=== PATIENT | male | born 1950 | race Caucasian/White ===

== ENCOUNTER 2023-12-08 08:48 | Outpatient (OUT) | payer MEDICARE, SELFPAY ==
--- NOTE | 2023-12-08 09:01 | CA_ITS ---
Patient Name: BALDO SWENSON MR#: [id number] : 1950 Exam Date: 12/08/2023 Ordering Doctor: MONIQUE CHO M.D. ECHOCARDIOGRAM REPORT PROCEDURE: CA ECHO DOPPLER COMPLETE INDICATIONS: Atrial fibrillation/flutter, hypertension COMPARISON: None. DESCRIPTION: COMPLETE ECHOCARDIOGRAM Real-time transthoracic echocardiography with 2D, M-mode, spectral and color flow Doppler performed. QUALITY: Technical quality was good. LEFT VENTRICLE: Normal chamber size. Moderate concentric left ventricular hypertrophy. LV EF: Normal left ventricular ejection fraction, (55%). DIASTOLIC: Not adequately assessed due to heart rhythm. ATRIAL SEPTUM: Visually appears intact. LEFT ATRIUM: Severe dilatation. RIGHT ATRIUM: Severe dilatation. RIGHT VENTRICLE: Moderate dilatation. Normal right ventricular systolic function. TRICUSPID VALVE: Normal mobility and thickness. No stenosis with trivial regurgitation. No evidence of pulmonary hypertension. RVSP 33 mmHg MITRAL VALVE: Normal mobility and thickness. No evidence of mitral valve stenosis. There is no mitral annular calcification. Trivial mitral regurgitation. AORTIC VALVE: Normal trileaflet appearance. No visible sclerosis. Normal leaflet mobility. No evidence of aortic valve stenosis. No aortic regurgitation. AORTIC ROOT: Normal diameter and appearance. Ascending aorta is normal in size. PULMONIC VALVE: Normal thickness and mobility. No stenosis. No regurgitation. PERICARDIUM: No evidence of pericardial effusion. IVC: Collapses with inspirations. IVC is normal in size. PLEURA: CONCLUSION: 1. Moderate concentric left ventricular hypertrophy with normal systolic function. LVEF is estimated at 55%. 2. Moderately dilated right ventricle with normal systolic function. 3. Severe biatrial dilatation. 4. No significant valvular dysfunction. 5. Normal right-sided pressures. 6. No pericardial effusion. Adult Echocardiography Procedure Report Left Ventricle LVEDD (3.7 - 5.6 cm): 5.22 cm LVESD (2.2 - 4.0 cm): 3.15 cm LVIVS thickness (0.6 - 1.2 cm): 1.48 cm LVPW thickness (0.5 - 1.0 cm): 1.35 cm LVOT Max Gradient: 1.35 mm[Hg] LVOT Area (cm2): 0.58 m/s Peak Velocity (LVOT): 0.58 m/s LVOT Diameter 2.34 cm Left Atrium LA Volume Index (2D A2C): 55.44 ml/m2 Left Atrium Systolic Dimension: 4.15 cm Mitral Valve Mitral Valve E-Wave Peak Velocity: 0.63 m/s Right Ventricle Aorta AO Root Diam: 3.71 cm Ascending Ao Diam: 2.79 cm Aortic Valve AoV Area (Peak Javier): 2.88 cm2, 2.88 cm2 Peak Velocity(Antegrade Flow): 0.86 m/s Peak Gradient(Antegrade Flow): 2.98 mm[Hg] Tricuspid Valve Peak Velocity (Regurgitant Flow): 2.74 m/s, 2.79 m/s, 2.81 m/s Pulmonic Valve Peak Velocity: 0.85 m/s Peak Gradient: 2.68 mm[Hg], 3.06 mm[Hg] Right Atrium Right Atrium Systolic Pressure: 100.76 ml, 100.76 ml Dictated by: Natan Mcallister M.D. on 12/08/2023 at 19:23 Approved by: Natan Mcallister M.D. on 12/08/2023 at 19:26
== END 2023-12-08 08:49 | disposition home or self-care (01) ==
PROVIDERS: PCP Nurse Practitioner Family; Visit Provider Internal Medicine Cardiovascular Disease
DX: I48.11 Longstanding persistent atrial fibrillation (principal)
CPT/HCPCS: 93306

== ENCOUNTER 2025-05-09 08:22 | Outpatient (OUT) | payer MEDICARE, SELFPAY ==
--- OUTSIDE RECORDS SUMMARY | 2025-05-09 08:29 | XMS_ITS | Clinical Summary ---
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 180 tablet ctive Additional Information Patient not taking.Reason: Other, Reported on 11/18/2024 carvedilol (Coreg) 12.5 mg tablet Indications:Essential hypertensionTAKE 1 TABLET (12.5 MG) BY MOUTH WITH BREAKFAST AND EVENING MEAL 180 tablet 5Active Active Problems ProblemNoted DateDiagnosed DateDilation of both cardiac atria12/31/2023 Overview (06/17/2024): Severe per echo 12/2023 Right ventricular /08/2024bnormal EKG011/20/2023Hypercholesterolemia 10/16/20223236Rbkqanlx19/25/2023trial ritbidtgymki57/28/2023hondromalacia patellae of left knee09/19/2022DD (degenerative disc disease), zguxdlco07/28/2023 Diverticulosis of intestine without htryjdcd76/28/2023Mild concentric left ventricular hypertrophy (LVH)09/19/2022Mild mitral imonecfixtooe62/28/2023 Periumbilical qqpsri0709/19/2022Tricuspid valve ufnzzuetsanjn00/28/2023Varicose veins of both legs with edema09/19/2022Obesity (BMI 30-39.9)12/04/2020Venous tjfiukdrhgio76/11/2018 Family History Medical HistoryRelationNameCommentsCABGFatherCoronary artery diseaseFather RelationNameStatusCommentsFatherDeceasedMotherDeceased Social History Tobacco UseTypesPacks/DayYears UsedDateSmoking Tobacco: FormerCigarettes Smokeless Tobacco: Never Tobacco Cessation:Counseling Given: Not Answered Alcohol UseStandard Drinks/WeekCommentsNot Currently0 (1 standard drink = 0.6 oz pure alcohol)UT Safety & EnvironmentAnswerDate RecordedFear of Current or Ex-PartnerNot on file10/22/2023Emotionally AbusedNot on file10/22/2023hysically AbusedNot on file10/22/2023Sexually AbusedNot on file10/22/2023hysically or Sexually AbusedNot on file10/22/2023Sex and Gender InformationValueDate Recorded Sex Assigned at BirthNot on fileLegal MbpJhdk0910/22/2023 8:36 AM EDTGender IdentityNot on fileSexual OrientationNot on file Last Filed Vital Signs Vital SignReadingTime TakenCommentsBlood Hhgyhqux660/90011/18/2024 1:39 PM EDT Xoaky844011/18/2024 1:39 PM EDTTemperature--Respiratory Rate--Oxygen Fyqaziuolb43% 11/18/2024 1:39 PM EDTInhaled Oxygen Concentration--Cvutar27 kg (216 lb) 11/18/2024 1:39 PM PHRBfoqul576.3 cm (5' 11 )11/18/2024 1:39 PM EDTBody Mass Index30.1306 1:39 PM EDT Plan of Treatment DateTypeDepartmentCare Team (Latest Contact Info)Ojydtbmvulc83/07/2026 9:00 AM ESTOffice Visit [facility] [address] [place] [address] Marvin Carvajal MD [address] [place] [address] Health MaintenanceDue DateLast DoneCommentsCT Auigtjxqzqnk1950FIT-DNA 1950FIT1950FOBT1950Medicare Annual Wellness (AWV)1950 Cnxjhhgrsdyxf1950Depression Yxslkyzzb07/25/1962Pneumococcal Vaccine: 50+ Years (1 of 2 - PCV)1969Adult Jizkrsi4105/18/1972Zoster Vaccines (1 of 2) 2000Fall Risk Wghrtizat83/25/2015COVID-19 Vaccine (1 - season) 2025Influenza Vaccine (#1), 03/03/2016Colonoscopy Colorectal Cancer Mvjdyjsps23/08/2028HIB VaccinesAged OutNo longer eligible based on patient's age to complete this topicHPV VaccinesAged OutNo longer eligible based on patient's age to complete this topicIPV Vaccines Aged OutNo longer eligible based on patient's age to complete this topic Meningococcal B VaccineAged OutNo longer eligible based on patient's age to complete this topicMeningococcal VaccineAged OutNo longer eligible based on patient's age to complete this topicRotavirus VaccinesAged OutNo longer eligible based on patient's age to complete this topic Insurance Care Teams Team MemberRelationshipSpecialtyStart DateEnd Lizbeth Oseguera MD [address] [place] [address] [facility] - General11/18/23
--- OUTSIDE RECORDS SUMMARY | 2025-05-09 08:29 | XMS_ITS | Clinical Summary ---
Author Organization [facility] Address [address] [place] [address] Care Team Providers Care Wood Repatcher Name Role Phone Adalberto Membreno MD Primary Care Provider [phone] Allergies Active AllergyReactionsCriticalityNoted UaaiXxlvgjddAouhejbKtugMci53/28/2023 Mushroom Extract Complex (Obsolete)07/30/2017 Other Reaction(s): abdominal cramping Other Reaction(s): Abdominal Pain Medications MedicationSigDispense QuantityRefillsLast FilledStart DateEnd DateStatus MULTIPLE VITAMIN IV Multiple VitaminActive ascorbic acid (Vitamin C) 100 MG chewable tablet Vitamin CActive Cholecalciferol (Vitamin D3) 456508 UNIT/GM powder 1 (one) time each day at the same time.Active Zinc 10 MG lozenge ZincActive Green Tea 250 MG capsule as directed OrallyActive L-lysine 500 MG tablet Take 500 mg by mouth 2 (two) times a day as needed.Active [place]-3 Fatty Acids (Fish Oil) 1200 MG capsule delayed-release 1 capsule 1 (one) time each day at the same time.Active glucosamine-chondroitin 500-400 MG tablet Take 1 tablet by mouth in the morning and 1 tablet before bedtime.Active NON FORMULARY CBD gummiesActive apixaban (Eliquis) 5 MG tablet Indications:Atrial fibrillation, unspecified type (HCC)Take 1 tablet (5 mg) by mouth in the morning and 1 tablet (5 mg) before bedtime. 180 tablet ctive Active Problems ProblemNoted DateDiagnosed DateDilation of both cardiac atria12/31/2023 Overview (12/31/2023): Severe per echo 12/2023 Right ventricular zudcduqs04/08/9999Aybqkfsqyujktulqjrar90/25/2023Migraine 10/16/2022trial iooniihewden84/28/2023hondromalacia patellae of left knee 09/19/2022DD (degenerative disc disease), /28/2023iverticulosis of intestine without wuosohra10/28/2023Mild concentric left ventricular hypertrophy (LVH)09/19/2022Mild mitral rwcillnlywlgf85/28/2023Obesity (BMI 30-39.9) 09/19/2022eriumbilical vnfzoe2709/19/2022Tricuspid valve xqyhmjtgazklv89/28/2023 Varicose veins of both legs with edema09/19/2022Venous ppliiwdjhybf67/11/2018 Resolved Problems ProblemNoted DateDiagnosed DateResolved DateAbnormal EKG0/ Rkuzkkrpig98/28/202305/ Encounters DateTypeDepartmentCare HyqiGypiwzbetdb77/25/2025Refill [facility] [address] [place] [address] Adalberto Membreno MD Atrial fibrillation, unspecified type (HCC)from Last 3 Months Immunizations ImmunizationAdministration DatesNext DueInfluenza, High Dose Seasonal, Preservative Free02/28/2019Influenza, seasonal, injectable, preservative free 03/03/2016 Family History Medical HistoryRelationNameCommentsMacular degenerationFatherStrokeFatherKidney cancerMotherProstate cancerOtherStrokeOtherRelationNameStatusCommentsBrother2 brothersDaughterAlive3 daughtersFatherDeceasedMotherDeceasedOtherSiblings (unspecified)Sister4 sistersSonAlive Social History Tobacco UseTypesPacks/DayYears UsedDateSmoking Tobacco: FormerCigarettes 05/25/1969 - 05/25/1976Passive Smoke Exposure: NeverSmokeless Tobacco: Never Tobacco Cessation:Counseling Given: Not Answered Comments:Last smoked > 10 years Alcohol UseStandard Drinks/WeekCommentsNot Currently0 (1 standard drink = 0.6 oz pure alcohol)AUDIT-CAnswerDate RecordedQ1: How often do you have a drink containing alcohol?4 or more times a week05/25/2023Q2: How many drinks containing alcohol do you have on a typical day when you are drinking?1 or 2 10/16/2022Q3: How often do you have six or more drinks on one occasion?Never 10/16/2022HQ-2AnswerDate RecordedPatient Health Questionnaire-2 Score0 10/20/2024Sex and Gender InformationValueDate RecordedSex Assigned at BirthNot on fileLegal BwrLpqt2208/06/2022 8:11 PM EDTGender IdentityNot on fileSexual OrientationNot on file Last Filed Vital Signs Vital SignReadingTime TakenCommentsBlood Rcuswmuw070/68010/20/2024 9:17 AM EDT Cvweh508110/20/2024 9:17 AM EDTTemperature--Respiratory Rate--Oxygen Saturation-- Inhaled Oxygen Concentration--Swbrdw07.3 kg (219 lb)10/20/2024 9:17 AM EDTHeight 177.8 cm (5' 10 )10/20/2024 9:17 AM EDTBody Mass Index31.42010/20/2024 9:17 AM EDT Plan of Treatment Health MaintenanceDue DateLast DoneCommentsCT Yrpssocenlbk1950FIT-DNA 1950FIT1950FOBT1950 1924Vxqukvbqicrhr1950COVID-19 Vaccine ( season)2025Influenza Vaccine (#1)51, 03/03/2016Medicare Annual Wellness (AWV), 10/20/2024, 10/20/2023, Additional history existsPneumococcal Vaccine: 65+ Years (1 of 2 - PCV)10/20/2025Postponed from 1969 (Patient Refused)Iptqrmrzmhn30/08/2028 07/30/2017Colorectal Cancer Njvvlfxzl79/08/2028 Procedures Procedure NamePriorityDate/TimeAssociated DiagnosisCommentsCOLONOSCOPYRoutine 07/30/2017 12:00 PM EST from Last 3 Months or Most Recently Relevant to Health Maintenance Results * Colonoscopy (07/30/2017 12:00 PM EST)Anatomical RegionLateralityModality EndoscopySpecimen (Source)Anatomical Location / LateralityCollection Method / VolumeCollection TimeReceived Time07/30/2017 12:00 PM EST Narrative 07/30/2017 12:00 PM EST PERFORMED AT [facility] LOCATION:[id number] Normal Procedure Note CONVERSION, GENERIC - 10/08/2022 PERFORMED AT [facility] LOCATION:[id number] Normal Authorizing ProviderResult TypeResult StatusMarcayden Hendrickson MDENDOSCOPY PROCEDURE ORDERABLESFinal Result from Last 3 Months or Most Recently Relevant to Health Maintenance Insurance [employer] [facility] [place] [address] Care Teams Team MemberRelationshipSpecialtyStart DateEnd Adalberto Membreno MD [address] [facility] [place] [phone] PCP - GeneralFamily Medicine02/16/25
--- OUTSIDE RECORDS SUMMARY | 2025-05-09 08:29 | XMS_ITS | Clinical Summary ---
Author Organization [employer] Address [id number] [address] [place] [address] Care Team Providers Care Head Of History Name Role Phone Lizbeth Oseguera APRN-SPORTS TRAINER Primary Care Provider Allergies Active AllergyReactionsCriticalityNoted YpmkCxoxgdbySpdiuafVhriBvg96/08/2018 MushroomAbdominal Pain07/30/2017 Medications MedicationSigDispense QuantityRefillsLast FilledStart DateEnd DateStatus xbkawljw-dmow-UP-calcium &mins (THERAGRAN-M) 9 mg iron-400 mcg tablet Take 1 tablet by mouth in the morning.Active LYSINE ORAL Take 1 tablet by mouth in the morning.Active B-complex with vitamin C tablet Take 1 tablet by mouth in the morning.Active omega-3 fatty acids-fish oil (FISH OIL) 300-1,000 mg capsule Take 2 capsules (2 g total) by mouth in the morning and 2 capsules (2 g total) before bedtime.Active apixaban (ELIQUIS) 5 mg tablet Take 1 tablet (5 mg total) by mouth in the morning and 1 tablet (5 mg total) before bedtime.Active cyanocobalamin (vitamin B-12) 1000 MCG tablet Take 1 tablet (1,000 mcg total) by mouth in the morning.Active cholecalciferol, vitamin D3, (VITAMIN D3 ORAL) Take by mouth in the morning.Active ECHINACEA ORAL Take by mouth in the morning and before bedtime.Active CALCIUM-MAGNESIUM ORAL Take by mouth in the morning and before bedtime.Active ZINC ORAL Take by mouth in the morning.Active carvediloL (COREG) 12.5 mg tablet Take 1 tablet (12.5 mg total) by mouth in the morning and 1 tablet (12.5 mg total) in the evening. Take with meals.Active Active Problems ProblemNoted DateDiagnosed DateObesity (BMI 30-39.9)12/04/2020Venous auetcijrmyhq59/11/2018Atrial fibrillationAbnormal EKGHypercholesterolemia Migraine Family History Medical HistoryRelationNameCommentsCancerBrother 1prostateStrokeBrother 1passed at age 65Heart attackBrother 2Heart diseaseFatherStrokeFatherCancerMotherkidney CancerSister 1brain, 2 sisters are aliveHeart diseaseSister 2RelationNameStatus CommentsBrother 1DeceasedBrother 2DeceasedFatherDeceasedMotherDeceasedSister 1 DeceasedSister 2AliveSTENTSister 3AliveSister 4Alive Social History Tobacco UseTypesPacks/DayYears UsedDateSmoking Tobacco: FormerSmokeless Tobacco: Never Tobacco Cessation:Counseling Given: No Alcohol UseStandard Drinks/WeekCommentsYes0 (1 standard drink = 0.6 oz pure alcohol)rareChildcareAnswerDate VmvzctydOvmloqoloOvunbcr78/10/2019Employment AnswerDate NbewqwkiJrxjkqdhbpHqovdia77/10/2019Purpose - LifeAnswerDate Recorded Purpose and direction in jdvwQispbzy71/10/2021ex and Gender InformationValue Date RecordedSex Assigned at BirthNot on fileLegal LhrGivl0312/26/2014 12:14 PM EDTGender IdentityNot on fileSexual OrientationNot on file Last Filed Vital Signs Vital SignReadingTime TakenCommentsBlood Qkzogniu183/7008 9:20 AM EDT Saojx5659/12/2025 6:55 AM KFSQgxlohqsuke31.1 ??C (98.8 ??F)01/03/2025 6:46 AM EDTRespiratory Rffj797701/03/2025 6:55 AM EDTOxygen Oooffcgqro07%01/03/2025 9:20 AM EDTInhaled Oxygen Concentration--Yfqrgh55.3 kg (210 lb)01/03/2025 6:46 AM EDT Zwwpkl046.1 cm (5' 10.5 )01/03/2025 6:46 AM EDTBody Mass Index29.71001/03/2025 6:46 AM EDT Plan of Treatment Health MaintenanceDue DateLast DoneCommentsDepression Pmqsiargq83/25/1962Adult BMI Follow Up Plan1968DTaP,Tdap and Td Vaccines (1 - Tdap)1969Zoster (Shingles) Vaccine (1 of 2)2000Abdominal Aortic Aneurysm (AAA) Screen 2015Fall Risk Shhwlmuvn63/25/2015Influenza Fdfhggg59/11/2018, 03/03/2016RSV ( or age 60+ yrs) (1 - 1-dose 75+ series)2025du BMI Uqcrjkuih46Tobacco Obqcppmjy87 Medical Devices ImplantedTypeAreaManufacturerDevice IdentifierShelf Expiration DateModel / Serial / LotLens Iol [id number] [facility] [id number] - [id number] - [id number] Implanted:Qty: 1 on 01/03/2025 by Shruti Boston MD at [facility] [employer]08/23/[id number].190 / [id number] / Kt Repr Shldr Ea=Bill-Only - Sna - [id number] Implanted:Qty: 1 on 03/09/2018 [facility] Wilhelm Jr[facility] Im[facility]Left: VzsqecwxNdxecrz16/30/2028 [id number] / NA / [id number] Insurance * Guarantor: Rosendo Martinez TypeRelation to PatientDate of PhoneBilling AddressPersonal/XrcxmoTlhb1950 [facility] [place] [place] [address] Care Teams Team MemberRelationshipSpecialtyStart DateEnd Date Lizbeth Oseguera, PHILLIP-SPORTS TRAINER [address] [place] [address] PCP - GeneralFamily Medicine01/02/25
[2025-05-09 09:31] LABS: Cholesterol 222 mg/dL (<=200); HDL Cholesterol 44 mg/dL (40-60); Triglycerides 133 mg/dL (<=150); VLDL CHOLESTEROL 26.6 mg/dL
== END 2025-05-09 08:23 | disposition home or self-care (01) ==
PROVIDERS: PCP Nurse Practitioner Family
DX: E78.2 Mixed hyperlipidemia (principal)
CPT/HCPCS: 36415; 80061